=== PATIENT | female | born 1975 | race Caucasian/White ===

== ENCOUNTER → 2022-12-31 10:40 | Outpatient (BNVA) | payer BC, SELFPAY | PROVIDERS: Family Provider Registered Nurse; PCP Registered Nurse; Visit Provider Registered Nurse | DX: Z00.00 Encounter for general adult medical examination without abnormal findings (principal); E55.9 Vitamin D deficiency, unspecified; Z13.6 Encounter for screening for cardiovascular disorders; E78.5 Hyperlipidemia, unspecified; E53.8 Deficiency of other specified B group vitamins; Z12.11 Encounter for screening for malignant neoplasm of colon; Z80.0 Family history of malignant neoplasm of digestive organs; M25.572 Pain in left ankle and joints of left foot; Z98.890 Other specified postprocedural states; M47.812 Spondylosis without myelopathy or radiculopathy, cervical region | CPT/HCPCS: 80053; 80061; 82306; 82607; 84443; 85025 ==

== ENCOUNTER 2023-01-08 09:22 | Outpatient (CLI) | payer BC, SELFPAY ==
--- NOTE | 2023-01-08 10:14 | XR_ITS ---
WS: [id number] Exam: XR cervical spine 3V* [id number] Date/Time of Exam: 01/08/2023 10:14 AM Reason For Exam: M47.812 - Spondylosis without myelopathy or radiculopathy... No fracture or dislocation noted. Mild degenerative disc thinning and spondylosis at the C5-6 level. Mild facet DJD. Normal paraspinal soft tissues. The odontoid is intact. IMPRESSION: 1. No fracture or malalignment. 2. Minimal degenerative changes as detailed above.
== END 2023-01-08 09:23 | disposition home or self-care (01) ==
LOC: RAD 09:25
PROVIDERS: PCP Registered Nurse; Visit Provider Registered Nurse
DX: M47.812 Spondylosis without myelopathy or radiculopathy, cervical region; M79.672 Pain in left foot; M25.572 Pain in left ankle and joints of left foot; M76.72 Peroneal tendinitis, left leg
CPT/HCPCS: 72040; 73600

== ENCOUNTER 2023-02-06 08:55 | Day surgery (SDC) | payer BC, SELFPAY ==
[2023-02-06 09:11] VITALS: BP 135/82; PULSE 91; RESP 18; TEMP 36.3; O2SAT 98; BMI 31.6
[2023-02-06 09:15] LABS: OR HCG Qualitative Urine Negative (Negative)
[2023-02-06] MEDS: sodium chloride 0.9% 1,000 ML 30 ML IV (09:16)
--- NOTE | 2023-02-06 09:36 | ANES.PREANE2 ---
Pre-Anesthetic Assessment Height/Weight: Height 1.65 m Weight 86.183 kg Temp Pulse Resp BP Pulse Ox O2 Del Method 97.3 F L 91 18 135/82 98 Room Air 02/06/23 09:11 02/06/23 09:11 02/06/23 09:11 02/06/23 09:11 02/06/23 09:11 02/06/23 09:11 Operation Date: 02/06/23 10:00 Proposed Procedures p 47027 colon G0121 screen colon A risk Z12.11(Not Applicable) - Gurpreet Davila DO Familial anesthetic complications: None Was Beta Mila taken within 24 hours: N/A Was Clonidine taken within 24 hours: N/A Last intake: Intake Last Liquid Date 02/05/23 Last Liquid Time 22:00 Last Solid Date 02/04/23 Last Solid Time 19:00 Social No alcohol and No tobacco Exam alert, oriented x 3, clear to auscultation bilaterally and regular rate & rhythm Airway Mallampati: Class I Dentition: other (crown) Anesthetic Plan ASA status: 1 Anesthesia: MAC Risk of > 500 ml blood loss (7ml/kg in children): No Medications/Allergies Home Medications Medication Instructions Recorded Confirmed Last Taken Type tramadol 50 mg tablet 50 mg PO DAILY PRN pain 30 days 12/31/22 02/04/23 Unknown Rx #30 tabs cyanocobalamin (vitamin B-12) 1,000 mcg IM .monthly 30 days #1 ea 01/02/23 02/04/23 12/31/22 Rx 1,000 mcg/mL injection kit meloxicam 15 mg tablet 15 mg PO DAILY #30 tabs 01/08/23 02/04/23 02/01/23 Rx sole supports #1 ea 01/08/23 01/08/23 Unknown Rx tranexamic acid 650 mg tablet 650 mg PO Q12H 01/08/23 02/04/23 01/28/23 History Allergies Allergy/AdvReac Type Severity Reaction Status Date / Time No Known Allergies Allergy Verified 02/04/23 15:40 Current Medications Generic Name Dose Route Start Last Admin Trade Name Freq PRN Reason Stop Dose Admin Sodium Chloride 1,000 mls @ 30 mls/hr 02/06/23 09:15 02/06/23 09:16 Sodium Chloride 0.9% IV 02/07/23 09:14 30 mls/hr .Q24H TASH Administration PFSH Anesthesia Medical History Family history of colon cancer aunt Surgical History History of ankle surgery left 2017 Family History Grandmother Hypertension Grandfather Cancer Social History Smoking and tobacco/nicotine status: never used tobacco/nicotine Alcohol intake: never Substance/Drug Use: never Adopted: No Caregiver/support person: No Lives independently: No Household members: spouse Marital status: Current occupational status: employed Sexually active: Yes Do you think of yourself as: Straight/Heterosexual Current gender identity: Female Female Reproductive History Date of last menstrual period: 01/28/23 Data Anesthesia Cardiac Studies: No Data to Display
--- NOTE | 2023-02-06 11:27 | W.PM.OPSUD ---
Surgery/Procedure H&P Update DATE OF PROCEDURE: February 06, 2023 DATE H&P PERFORMED: 01/08/23 H&P UPDATE INFORMATION: I have reviewed H&P completed within last 30 days, I have examined patient prior to procedure and No changes to prior documentation PLANNED PROCEDURE: Operation Date: 02/06/23 10:00 Proposed Procedures p [id number] colon G0121 screen colon A risk Z12.11(Not Applicable) - Gurpreet Davila, DO
[2023-02-06 11:41] VITALS: BP 105/66; PULSE 81; RESP 14; TEMP 36.1; O2SAT 97
[2023-02-06 11:51] VITALS: BP 110/69; PULSE 73; RESP 16; O2SAT 98
[2023-02-06 12:00] VITALS: BP 114/83; PULSE 76; RESP 18; O2SAT 99
== END 2023-02-06 12:15 | disposition home or self-care (01) ==
PROVIDERS: PCP Registered Nurse; Visit Provider Surgery
PROC: 0DJD8ZZ Inspection of Lower Intestinal Tract, Via Natural or Artificial Opening Endoscopic (ICD-10-PCS; CPT 45378; principal; 2023-02-06 10:00)
DX: Z12.11 Encounter for screening for malignant neoplasm of colon (principal); Z80.0 Family history of malignant neoplasm of digestive organs
CPT/HCPCS: 45378; 81025; 84703; J2704; J7030

== ENCOUNTER 2023-02-08 08:37 | Outpatient (CLI) | payer BC, SELFPAY ==
--- NOTE | 2023-02-08 08:45 | MR_ITS ---
WS: [id number] MRI CERVICAL SPINE NONCONTRAST TECHNIQUE: Sagittal T1, T2 and STIR imaging. Axial T2, gradient, and fiesta imaging. 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 FINDINGS: Straightening of the normal cervical doses. Cord signal is normal. Small disc protrusions at C3-C4 an d C5-C6. C2-C3: Normal. C3-C4: Mild disc bulging. Mild facet arthropathy. Mild LEFT foraminal narrowing. C4-C5: Mild disc bulge with osteophytic ridging. Mild LEFT bony foraminal narrowing. Moderate facet a rthropathy. C5-C6: Shallow RIGHT paracentral protrusion. Slight effacement of the ventral thecal sac. Mild facet arthropathy. Mild RIGHT foraminal narrowing. C6-C7: Mild disc osteophytic ridging. Spinal canal and foramen are patent. C7-T1: Mild osteophytic ridging. Mild RIGHT and no significant LEFT foraminal narrowing. Visualized brain stem structures: Normal. Prevertebral soft tissues: Normal. IMPRESSION: 1. Straightening normal cervical lordosis. 2. Shallow RIGHT paracentral protrusion C5-C6 with slight effacement of the ventral thecal sac. Spin al canal remains patent. 3. Tiny shallow central protrusion C3-C4. 4. Mild foraminal narrowing LEFT C3-C4, LEFT C4-C5, RIGHT C5-C6 and RIGHT C7-T1
== END 2023-02-08 08:38 | disposition home or self-care (01) ==
LOC: RAD 08:38
PROVIDERS: PCP Registered Nurse; Visit Provider Registered Nurse
DX: M43.02 Spondylolysis, cervical region (principal); R51.9 Headache, unspecified; M50.222 Other cervical disc displacement at C5-C6 level; M48.03 Spinal stenosis, cervicothoracic region
CPT/HCPCS: 72141

== ENCOUNTER 2023-02-21 11:38 | Outpatient (CLI) | payer BC, SELFPAY | END 2023-02-21 11:39 | disposition home or self-care (01) | LOC: SPT 03-06 11:39 | PROVIDERS: PCP Registered Nurse; Visit Provider Podiatrist Foot & Ankle Surgery | DX: Z46.89 Encounter for fitting and adjustment of other specified devices (principal); M76.72 Peroneal tendinitis, left leg | CPT/HCPCS: 97760; L3030 ==